=== PATIENT | male | born 2000 | race African-American/Black ===

== ENCOUNTER 2021-01-28 16:22 | Emergency (ER) | payer MEDICAID ==
[~2021-01-28] VITALS: Ht 193 cm; Wt 68.2 kg
[2021-01-28 16:34] VITALS: BP 115/69; Ht 193 cm; Wt 68.2 kg
[2021-01-28] MEDS ORDERED: HYDROCODONE-AC1 EAC2 PO (18:39)
[2021-01-28] MEDS ORDERED: AUGMENTIN 875-11 TAB PO (18:39)
== END 2021-01-28 18:54 | disposition home or self-care (01) ==
LOC: D.ER 16:22
DX: S61.411A Laceration without foreign body of right hand, initial encounter (principal); X58.XXXA Exposure to other specified factors, initial encounter

== ENCOUNTER 2021-02-07 14:16 | Emergency (ER) | payer MEDICAID ==
[~2021-02-07] VITALS: Ht 193 cm; Wt 63.6 kg
[~2021-02-07 14:16] MED LIST: AUGMENTIN 875-11 TAB PO; HYDROCODONE-AC1 EAC2 PO
[2021-02-07 15:00] VITALS: BP 122/78; Ht 193 cm; Wt 63.6 kg
== END 2021-02-07 15:08 | disposition home or self-care (01) ==
LOC: D.ER 14:16
DX: Z48.02 Encounter for removal of sutures (principal)